=== PATIENT | male | born 1985 | race Caucasian/White ===

== ENCOUNTER → 2021-07-23 02:33 | Outpatient (CLI) | payer OTHER, SELFPAY ==
[2021-07-24 19:51] LABS: SARS-CoV-2 RNA PCR Negative
== END ==
PROVIDERS: PCP Family Medicine; Visit Provider Physician Assistant Medical
DX: R68.89 Other general symptoms and signs (principal); Z20.822 Contact with and (suspected) exposure to COVID-19
CPT/HCPCS: C9803; U0003; U0005